=== PATIENT | female | born 1960 | race Two or more races ===

== ENCOUNTER 2024-10-16 16:22 | Emergency (ER) | payer BC, OTHER ==
[~2024-10-16] VITALS: Ht 167.6 cm; Wt 68.1 kg
[2024-10-16] MEDS: SODIUM CHLORIDE 0.9% 1,000 ML IV ONE (17:24)
[2024-10-16] MEDS: ONDANSETRON HCL 4 MG/2 ML VIAL IV ONE (17:24)
--- NOTE | 2024-10-16 17:27 | ED.PDOC ---
History of Present Illness HPI Comments 64 y/o f, with no prior medical history presents to the ED for CC of tremors. Patient states, she has been experiencing sudden onset tremors with associated symptoms of nausea, vomiting, and headache while driving her car today (10/16/24). Patient denies any social history. Patient denies weakness, fatigue, lack of balance, or blurred vision. No other symptoms or modifying factors present at this time. Chief Complaint: Tremors Time Seen by MD: 17:00 Reviewed Notes: Nurses Notes, Medications, Allergies Allergies: Coded Allergies: Ceftriaxone (Verified Allergy, Unknown, 10/16/24) Codeine (Verified Allergy, Unknown, 10/16/24) Penicillins (Verified Allergy, Unknown, 10/16/24) Sulfa Antibiotics (Verified Allergy, Unknown, 10/16/24) Information Source: Patient Mode of Arrival: Ambulatory Severity: Moderate Timing: Minutes Duration: Since onset Prehospital treatment: None Past Medical History PAST MEDICAL HISTORY: Denies Surgical History: Denies all surgeries [employer] History: Unknown Family History Family History: Unknown Social History Smoker: Non-Smoker Alcohol: Denies ETOH Use Drugs: Denies Drug Use Lives In: Home Constitutional: denies: chills, diaphoresis, fatigue, fever, malaise, sweats, weakness, others EENTM: denies: blurred vision, double vision, ear bleeding, ear discharge, ear drainage, ear pain, ear ringing, eye pain, eye redness, hearing loss, mouth pain, mouth swelling, nasal discharge, nose bleeding, nose congestion, nose pain, photophobia, tearing, throat pain, throat swelling, voice changes, others Respiratory: denies: cough, hemoptysis, orthopnea, SOB at rest, shortness of breath, SOB with excertion, stridor, wheezing, others Cardiovascular: denies: chest pain, dizzy spells, diaphoresis, Dyspnea on exertion, edema, irregular heart beat, left arm pain, lightheadedness, palpita tions, PND, syncope, others Gastrointestinal: reports: nausea, vomiting; denies: abdomen distended, abdominal pain, blood streaked bowels, constipated, diarrhea, dysphagia, difficulty swallowing, hematemesis, melena, poor appetite, poor fluid intake, rectal bleeding, rectal pain, others Genitourinary: denies: abnormal vagina bleeding, burning, dyspareunia, dysuria, flank pain, frequency, hematuria, incontinence, pain, , vagina discharge, urgency, others Neurological: reports: headache, tremors; denies: dizziness, fainting, left sided numbness, left sided weakness, numbness, paresthesia, pre-existing def icit, right sided numbness, right sided weakness, seizure, speech problems, tingling, weakness, others Musculoskeletal: denies: back pain, gout, joint pain, joint swelling, muscle pain, muscle stiffness, neck pain, others Integumetry: denies: bruises, change in color, change in hair/nails, dryness, laceration, lesions, lumps, rash, wounds, others Allergic/Immunocompromised: denies: Difficulty Healing, Frequent Infections, Hives, Itching, others Hematologic/Lymphatic: denies: anemia, blood clots, easy bleeding, easy bruising, swollen glands, others Endocrine: denies: excessive hunger, excessive sweating, excessive thirst, excessive urination, flushing, intolerance to cold, intolerance to heat, unexplained weight gain, unexplained weight loss, others Psychiatric: denies: anxiety, bipolar disorder, depression, hopeless, panic disorder, schizophrenia, sleepless, suicidal, others All Other Systems: Reviewed and Negative Physical Exam General Appearance: No Apparent Distress, Normal HEENT: Normal ENT Inspection, Pharynx Normal Neck: Full Range of Motion, Non-Tender, Normal, Normal Inspection Respiratory: Chest Non-Tender, Lungs Clear, No Accessory Muscle Use, No Respiratory Distress, Normal Breath Sounds Cardiovascular: No Edema, No Murmur, No Gallop, Normal Peripheral Pulses, Regular Rate/Rhythm Breast Exam: Deferred Gastrointestinal: No Organomegaly, Non Tender, No Pulsatile Mass, Normal Bowel Sounds, Soft Genitalia: Deferred Pelvic: Deferred Rectal: Deferred Extremities: No calf tenderness, Normal capillary refill, Normal inspection, Normal range of motion, Non-tender, No pedal edema Musculoskeletal : Apperance: Normal 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 Was a procedure done?: No Differential Dx Considerations may include: migraine headache, dehydration X-Ray, Labs, Meds, VS Vital Signs Date Time Temp Pulse Resp B/P (MAP) Pulse Ox O2 Delivery O2 Flow Rate FiO2 10/16/24 17:29 94 13 99 Room Air* 0 21 10/16/24 17:29 98.2 94 13 130/98 (109) 99 98.2 10/16/24 16:24 98.6 88 22 154/87 97 98.6 Lab Test 10/16/24 18:52 10/16/24 18:45 Range/Units Urine Color Light-yellow Yellow Urine Clarity Clear Clear Urine pH 5.0 5.0-9.0 Urine Specific [place] 1.014 1.001-1.035 Urine Protein Negative Negative Urine Ketones Negative Negative Urine Blood Trace H Negative /uL Urine Nitrite Negative Negative Urine Bilirubin Negative Negative Urine Urobilinogen Normal Negative mg/dL Urine Leukocyte Esterase Negative Negative /uL Urine RBC 1 0 - 4 /hpf Urine Microscopic WBC 1 0-5 /HPF Urine Squamous Epithelial Cells Few <5 /hpf Urine Bacteria None seen None Seen /hpf Urine Glucose Normal Normal mg/dL White Blood Count 16.0 H 4.4-10.8 10^3/uL Red Blood Count 4.03 4.0-5.20 10^6/uL Hemoglobin 13.2 12.2-16.2 g/dL Hematocrit 38.2 36.0-46.0 % Mean Corpuscular Volume 94.9 80.0-100.0 fL Mean Corpuscular Hemoglobin 32.9 H 28.0-32.0 pg Mean Corpuscular Hemoglobin Concent 34.6 32.0-36.0 g/dL Red Cell Distribution Width 13.6 11.8-14.3 % Platelet Count 199 140-450 10^3/uL Mean Platelet Volume 10.6 6.9-10.8 fL Neutrophils (%) (Auto) 91.5 H 37.0-80.0 % Lymphocytes (%) (Auto) 3.2 L 10.0-50.0 % Monocytes (%) (Auto) 4.6 0.0-12.0 % Eosinophils (%) (Auto) 0.1 0.0-7.0 % Basophils (%) (Auto) 0.6 0.0-2.0 % Neutrophils # (Auto) 14.6 H 1.6-8.6 10 ^3/uL Lymphocytes # (Auto) 0.5 0.4-5.4 10 ^3/uL Monocytes # (Auto) 0.7 0-1.3 10 ^3/uL Eosinophils # (Auto) 0 0-0.8 10 ^3/uL Basophils # (Auto) 0.1 0-0.2 10 ^3/uL Nucleated Red Blood Cells 0.0 % Sodium Level 142 136-145 mmol/L Potassium Level 3.3 L 3.5-5.1 mmol/L Chloride Level 106 98-107 mmol/L Carbon Dioxide Level 24 20-31 mmol/L Anion Gap 12 5-15 Blood Urea Nitrogen 16 9-23 mg/dL Creatinine 1.08 H 0.550-1.02 mg/dL Glomerular Filtration Rate Calc 58 >90 mL/min BUN/Creatinine Ratio 14.8 10.0-20.0 Serum Glucose 93 74-106 mg/dL Calcium Level 9.2 8.7-10.4 mg/dL Total Bilirubin 0.8 0.2-1.0 mg/dL Aspartate Amino Transferase (AST) 22 13-40 U/L Alanine Aminotransferase (ALT) 15 7-40 U/L Alkaline Phosphatase 71 46-116 U/L Total Protein 6.5 5.7-8.2 g/dL Albumin 4.5 3.2-4.8 g/dL Lipase 42 12-53 U/L Current Medications Medications (Trade) Dose Ordered Sig/Howie Route Start Time Stop Time Status Last Admin Sodium Chloride 1,000 ml @ 1,000 mls/hr Q1H ONCE IV 10/16/24 17:15 10/16/24 18:14 DC 10/16/24 17:24 Ondansetron HCl (Zofran) 4 mg ONCE ONCE IV 10/16/24 17:15 10/16/24 17:16 DC 10/16/24 17:24 Prochlorperazine Edisylate (Compazine Inj) 10 mg ONCE ONCE IV 10/16/24 18:30 10/16/24 18:31 DC 10/16/24 18:47 X-Ray, Labs, Meds, VS Comment Imaging was reviewed by this provider, there is no obvious pathological or acute disease process. Pending radiology review Labs were reviewed by this provider, the report blood cell count Vital signs reviewed by this provider, clinically stable Time of 1ST Reevaluation: 17:30 Reevaluation 1ST: Unchanged Patient Education/Counseling: Diagnosis, Treatment, Need For Follow Up (If symptoms worsen over the next 4-6 hours return to this emergency department. Follow up with PCP in the next24 hours. Symptoms have not improved in the next24 hours return to this emergency room.) Family Education/Counseling: No Family Present SEPSIS Sepsis Screen Date sepsis recognized/suspect: Oct 16, 2024 Time Sepsis recognized/suspect: 1625 Recent Procedure: No On Antibiotic Therapy: No Respiratory Rate >20: No Heart Rate >90: No Temp<36 C (96.8 F) or >38.3 C: No SBP <90 or MAP <65 mmHG: No New Acute Mental Status Change: No Is the patient on CPAP, BIPAP,: No Physician Orders Ct Ab Pel Wo Con-No Oral Or Iv (10/16/24 17:17) Vital Signs Date Time Temp Pulse Resp B/P (MAP) Pulse Ox O2 Delivery O2 Flow Rate FiO2 10/16/24 17:29 94 13 99 Room Air* 0 21 10/16/24 17:29 98.2 94 13 130/98 (109) 99 98.2 10/16/24 16:24 98.6 88 22 154/87 97 98.6 Laboratory Tests Test 10/16/24 18:45 White Blood Count 16.0 10^3/uL (4.4-10.8) H Medications Medications Dose Ordered Sig/Hoiwe Route Start Time Stop Time Status Last Admin Dose Admin Ondansetron HCl 4 mg ONCE ONCE IV 10/16/24 17:15 10/16/24 17:16 DC 10/16/24 17:24 Prochlorperazine Edisylate 10 mg ONCE ONCE IV 10/16/24 18:30 10/16/24 18:31 DC 10/16/24 18:47 Sodium Chloride 1,000 ml @ 1,000 mls/hr Q1H ONCE IV 10/16/24 17:15 10/16/24 18:14 DC 10/16/24 17:24 Departure 1 Departure Time of Disposition: 20:40 Impression: Primary Impression: Colitis, enteritis, and gastroenteritis of presumed infectious origin Disposition: HOME / SELF CARE / HOMELESS Condition: Stable e-Prescriptions Ciprofloxacin Hcl (Cipro) 500 Mg Tab 1 TAB PO BID, #14 TAB Prov: DEEPALI MARCH 10/16/24 Dicyclomine Hcl (BENTYL CAPSULE) 10 Mg Cp 1 CAP PO TID, #30 CAP 11 Refills Prov: DEEPALI MARCH 10/16/24 Metoclopramide Hcl (Reglan) 5 Mg Tab 5 MG PO TID PRN, #20 TAB Prov: DEEPALI MARCH 10/16/24 Discharged With: Self Critical Care Note Critical Care Time?: No Stability Stability form required: No Heart Score Heart Score: Heart Score Response (Comments) Value History N/A 0 EKG N/A 0 Age N/A 0 Risk Factors N/A 0 Troponin N/A 0 Total 0 I personally scribed for DEEPALI MARCH TARPER ([email or web address]) on 10/16/24 at 17:27. Electronically submitted by Kasey Jauregui ([email or web address]). I personally scribed for DEEPALI MARCH TARPER ([email or web address]) on 10/16/24 at 17:32. Electronically submitted by Kasey Jauregui ([email or web address]). DEEPALI MARCH Oct 16, 2024 17:27
[2024-10-16 17:29] VITALS: PULSE 94; RESP 13; O2SAT 99
[2024-10-16] MEDS: PROCHLORPERAZINE EDISYLATE 5 MG/ML 2ML VIAL IV ONE (18:47)
[2024-10-16 19:27] LABS: Alanine Aminotransferase 15 U/L (7-40); Albumin 4.5 g/dL (3.2-4.8); Alkaline Phosphatase 71 U/L (46-116); Anion Gap 12 (5-15); BUN/Creatinine Ratio 14.8 (10.0-20.0); Bilirubin, Total 0.8 mg/dL (0.2-1.0); Blood Urea Nitrogen 16 mg/dL (9-23); Calcium 9.2 mg/dL (8.7-10.4); Carbon Dioxide 24 mmol/L (20-31); Chloride 106 mmol/L (98-107); Glucose 93 mg/dL (74-106); Sodium 142 mmol/L (136-145); Total Protein 6.5 g/dL (5.7-8.2)
[2024-10-16 19:35] LABS: Hematocrit 38.2 % (36.0-46.0); Hemoglobin 13.2 g/dL (12.2-16.2); Mean Corpuscular Hemoglobin 32.9 pg (28.0-32.0); Mean Corpuscular Volume 94.9 fL (80.0-100.0); Nucleated Red Blood Cells % 0.0 %
--- NOTE | 2024-10-16 19:37 | DVH ---
EXAM: CT CT AB PEL WO CON-NO ORAL OR IV INDICATION: abd pain TECHNIQUE: Volumetric multidetector CT images of the abdomen and pelvis were obtained without contras t. All CT scans at this facility use dose modulation, iterative reconstruction, and/or weight based d osing when appropriate to reduce radiation dose to as low as reasonably achievable. COMPARISON: None FINDINGS: [LOWER CHEST]: 3 mm oval-shaped micronodule located of the periphery of the lateral basilar segment i maging finding is favored to be benign. The cardiac size is normal without pericardial effusion. [LIVER]: Normal hepatic size without suspicious focal lesion. [GALLBLADDER AND BILIARY TREE]: No cholelithiasis. [SPLEEN]: Unremarkable. [PANCREAS]: Unremarkable. [ADRENAL GLANDS]: Unremarkable [KIDNEYS]: No hydronephrosis. No nephroureterolithiasis. [BLADDER]: Unremarkable for the degree distention. [REPRODUCTIVE ORGANS]: Unremarkable. [BOWEL/MESENTERY]: Stomach is normal. No CT evidence of bowel obstruction. slight distention of the distal jejunal loops in the left mid to lower hemiabdomen. Correlate for sequelae of enteritis. Addit ional questionable air-fluid levels ileum. Air-fluid level in the ascending colon. [ASCITES]: Absent [LYMPHADENOPATHY]: Multiple likely reactive retroperitoneal lymph nodes. [VASCULATURE]: No aneurysmal dilatation. [ABDOMINAL WALL]: Unremarkable. [MUSCULOSKELETAL]: No acute fracture or aggressive focal osseous lesion. Multifocal degenerative knight ge of the visualized spine. IMPRESSION: 1. Question sequelae of enteritis as detailed above
[2024-10-16 19:48] LABS: Potassium 3.3 mmol/L (3.5-5.1)
[2024-10-16 19:57] LABS: Lipase 42 U/L (12-53)
[2024-10-16 19:59] LABS: Urine Protein, UAD Negative (Negative)
[2024-10-16] MEDS ORDERED: METO5TAB67 PO (20:43)
[2024-10-16] MEDS ORDERED: CIPR-173 PO (20:43)
[2024-10-16] MEDS ORDERED: DICY10CA PO (20:43)
[2024-10-16 21:54] VITALS: BP 135/81; PULSE 117; RESP 19; TEMP 99.5; O2SAT 96
== END 2024-10-16 21:57 | disposition home or self-care (01) ==
LOC: ER 16:22
DX: K52.9 Noninfective gastroenteritis and colitis, unspecified (principal); Z88.5 Allergy status to narcotic agent; Z88.2 Allergy status to sulfonamides; Z88.1 Allergy status to other antibiotic agents; Z88.0 Allergy status to penicillin
CPT/HCPCS: 36415; 74176; 80053; 81001; 82947; 83690; 85025; 96361; 96374; 96375; 99285; J0780; J2405; J7030